=== PATIENT | male | born 2000 | race Hispanic/Latino ===

== ENCOUNTER 2020-08-25 13:01 | Emergency (ER) | payer SELFPAY ==
[2020-08-25 13:07] VITALS: BP 142/81; PULSE 96; RESP 20; TEMP 36.6; O2SAT 99
--- NOTE | 2020-08-25 13:10 | DI.RAD.S_ITS ---
PROCEDURE: XR FOOT LT MIN 3V INDICATIONS: concern for fb TECHNIQUE: 3 views of the foot were acquired. COMPARISON: None. FINDINGS: Bones: Subtle ill-defined lucency in the medial cuneiform could absent nondisplaced fracture or or caused by artifact. No displace fractures or dislocations. No suspicious bony lesions. Soft tissues: No tibiotalar joint effusion. Achilles tendon appears normal. IMPRESSION: Subtle ill-defined lucency in the medial cuneiform could represent nondisplaced fracture or artifact. Recommend correlation with focal pain/tenderness. If clinically indicated, a repeat examination is suggested in 7-10 days. Dictated by: Camille Dove M.D. on 08/25/2020 at 14:00 Approved by: Camille Dove M.D. on 08/25/2020 at 14:03
[2020-08-25] MEDS: TET,DIPH,PERTUSS(ACELL),VAC/PF 0.5 ML SYRINGE IM (15:57)
--- NOTE | 2020-08-25 16:09 | ED.WOUNDLAC ---
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 Initially washed it out did not think anything of it. This morning he woke up it was slightly swollen more tender at the puncture site and his toes were tingling. The paresthesia resolved once he was up and moving around and I suspect that is related to the mild edema of the foot. He reports no fevers or chills. He has no other medical complaints. He is been in his usual state of excellent health up until he stepped on the nail. Related Data Previous Rx's Medication Instructions Recorded doxycycline hyclate 100 mg PO DAILY #10 tab 08/25/20 Review of Systems Review of Systems Narrative: Remainder of complete review of systems is otherwise unremarkable except for that included in the HPI. Exam Narrative Exam Narrative: General: Alert appropriate in no acute distress Respiratory: Able to speak in full sentences, no obvious respiratory distress Skin: No obvious rashes, warm and dry Neurologic: Grossly intact no obvious asymmetries or abnormalities Psych: appropriate insight and affect, cooperative Extremity: Left foot has a puncture wound the dorsum of the foot with out fluctuance or spreading cellulitis. There is no drainage. It is slightly swollen around the wound and tender to the touch. He has no lymphangitis spread no pain in his calf or thigh. Initial Vital Signs Initial Vital Signs: Vital Signs Temperature 97.9 F 08/25/20 13:07 Pulse Rate 96 H 08/25/20 13:07 Respiratory Rate 20 08/25/20 13:07 Blood Pressure 142/81 H 08/25/20 13:07 Pulse Oximetry 99 08/25/20 13:07 Course Orders Ordered: ED Orders 08/25/20 13:10 XR foot LT min 3V Stat Discontinued Medications Diphtheria/Tetanus/Acell Pertussis (Tet,Diph,Pertuss(Acell),Vac/Pf 0.5 Ml Syringe) 0.5 ml IM .ONCE ONE Stop: 08/25/20 13:11 Last Admin: 08/25/20 15:57 Dose: 0.5 ml Documented by: HARRIS Vital Signs Vital signs: Vital Signs - 8 hr 08/25/20 13:07 Temperature 97.9 F Pulse Rate 96 H Respiratory Rate 20 Blood Pressure 142/81 H Pulse Oximetry 99 MDM - Wound/Laceration Imaging Data xr foot: Radiologist's Impression: FINDINGS: Bones: Subtle ill-defined lucency in the medial cuneiform could absent nondisplaced fracture or or caused by artifact. No displace fractures or dislocations. No suspicious bony lesions. Soft tissues: No tibiotalar joint effusion. Achilles tendon appears normal. IMPRESSION: Subtle ill-defined lucency in the medial cuneiform could represent nondisplaced fracture or artifact. Recommend correlation with focal pain/tenderness. If clinically indicated, a repeat examination is suggested in 7-10 days. Dictated by: Camille Dove M.D. on 08/25/2020 at 14:00 [facility] Narrative Medical decision making narrative: Otherwise healthy 20-year-old gentleman with puncture wound, refrain nail through his work boot sole. Midfoot, left foot. No obvious bony injury. Started on doxycycline tetanus status updated. Warning signs for deep tissue infection are reviewed clearly with him andinstructions to return should he get worse at all Discharge Plan Departure Patient Disposition: Home Clinical Impression: Puncture wound Instructions: DI for Puncture Wound Activity Restrictions/Additional Instructions: Thank you for coming in today Your x-ray was reassuring. You did get a tetanus shot today. I would like you to complete 5 additional days of doxycycline so that your foot does not become infected. I would recommend not returning to work until August 27 for your safety. If your foot seems like it is getting worse, there is any drainage from the area, any red streaks going up your leg, you need to be seen again as soon as possible. Using 400 mg of ibuprofen (2 [id number] pills) and 1 Tylenol every 6 hours can be very helpful in controlling pain. He keeping the foot elevated can also help. I hope you heal quickly Prescriptions: New doxycycline hyclate 100 mg tablet 100 mg PO DAILY Qty: 10 RF: 0 Stand Alone Forms: Work Release Note
== END 2020-08-25 17:00 | disposition home or self-care (01) ==
PROVIDERS: Emergency Provider Emergency Medicine
DX: S91.332A Puncture wound without foreign body, left foot, initial encounter (principal); W45.0XXA Nail entering through skin, initial encounter; Z23 Encounter for immunization
CPT/HCPCS: 73630; 90471; 99283; 90715